=== PATIENT | male | born 1960 | race Caucasian/White ===

== ENCOUNTER → 2018-03-01 | Outpatient (CLI) | payer BC ==
--- NOTE | 2018-03-02 10:56 | SLEEP ---
DATE OF STUDY: 03/01/2018 SLEEP STUDY ATTENDING PHYSICIAN: Dr. Evy Pradhan. DATE OF STUDY: 03/01/2018. The patient is 57 years old, who weighs 188 pounds with a BMI of 29. The patient's [place] score was 7. The patient underwent split-night study at [facility]. During the night study, the patient spent 422 minutes in bed and slept for 352 minutes, with a sleep efficiency of 83%. Sleep latency was 14 minutes with a REM latency of 66 minutes. Overall, sleep architecture showed normal stage 1 sleep, increased stage 2 sleep, absent slow wave and normal REM sleep. During the initial diagnostic portion of the study, the patient slept for 128 minutes. During that time, the patient had 22 obstructive apneas, no central apneas, 16 mixed apneas and 60 hypopneas. The patient's apnea-hypopnea index was 46 per hour, supine index 59 per hour and a REM index of 58 per hour. EKG monitoring revealed normal sinus rhythm. Occasional PACs seen. Average heart rate was 77 beats per minute. PLMS were not seen. Nocturnal oximetry study revealed an average oxygen saturation of 94% with lowest of 76%. 15% of time oxygen saturation remained between 80% and 89%. The patient met the criteria for CPAP initiation. It was started at 5 cm water and titrated up to 12 cm water. At the final pressure, the patient slept for 79 minutes. The patient had supine as well as REM sleep. The patient's AHI was reduced to only 5 per hour and oxygen saturation remained above 92%. The patient used a medium-sized nasal mask. IMPRESSION: 1. Severe sleep apnea-hypopnea syndrome at an apnea-hypopnea index of 46 per hour. 2. Nocturnal hypoxia secondary to obstructive sleep apnea, but resolved with CPAP. 3. No clinically significant PLMS. RECOMMENDATIONS: 1. CPAP at 12 cm water completely eliminated the patient's sleep apnea and should be used on a nightly basis. 2. Follow up in 4-6 weeks to assess compliance with CPAP and to document clinical improvement. 3. Weight loss is advised. 4. 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 5. Caution regarding driving until symptoms of sleep apnea resolve with the use of CPAP. TRELL HOU MD DR: GERSON/shreya JOB#: [id number] / [id number] EVY Dunlap MD
== END | disposition home or self-care (01) ==
LOC: SLPLAB 18:22
PROVIDERS: ATTEND Nurse Practitioner Family
DX: G47.33 Obstructive sleep apnea (adult) (pediatric) (principal); G47.34 Idiopathic sleep related nonobstructive alveolar hypoventilation; Z86.69 Personal history of other diseases of the nervous system and sense organs
CPT/HCPCS: 95810

== ENCOUNTER → 2018-06-28 | Outpatient (CLI) | payer BC ==
--- NOTE | 2018-06-28 08:29 | RAD ---
Examination: Ultrasound abdomen complete HISTORY: History of epigastric pain COMPARISON: None available. FINDINGS: The heart, IVC are not well-visualized due to bowel gas. There is increased echogenicity identified throughout the liver likely hepatic steatosis. The right lobe of the liver measures 16.5 cm. No evidence of gallstones. Common bile duct measures 3.1 mm in diameter. The right kidney measures 10.7 cm in length. The left kidney measures 11.7 cm in length. The spleen measures 10.5 cm in length. IMPRESSION: 1. Increased echogenicity noted throughout the liver likely hepatic steatosis. 2. No evidence of gallstones. Electronically signed by: Augustine Velasco MD (06/28/2018 8:25 AM) [id number]
== END | disposition home or self-care (01) ==
LOC: US 07:44
PROVIDERS: ATTEND Physician Assistant
DX: R10.84 Generalized abdominal pain (principal)
CPT/HCPCS: 76700